=== PATIENT | male | born 1965 | race American Indian/Alaskan Native ===

== ENCOUNTER 2019-04-29 13:30 | Day surgery (SDC) | payer OTHER ==
[~2019-04-29 13:30] MED LIST: NACL 0.9% 1000 ML 1,000 ML IV SCH
[2019-04-29] MEDS ORDERED: XYLOCAINE MPF 2% ONE (14:30)
--- NOTE | 2019-04-29 14:40 | Anesthesia Consultation ---
Anesthesia Consult and Med Hx - Airway Anesthetic Teeth Evaluation: Good ROM Head & Neck: Adequate Mental/Hyoid Distance: Adequate Mallampati Class: Class I Intubation Access Assessment: Good - Pulmonary Exam CTA: Yes - Cardiac Exam Cardiac Exam: RRR - Pre-Operative Health Status ASA Pre-Surgery Classification: ASA2 Proposed Anesthetic Plan: MAC - Pulmonary Hx Smoking: Yes (Hx. of bronchitis, CTA) - Central Nervous System Hx Psychiatric Problems: Yes - Gastrointestinal Hx Ulcer: Yes - Hematic Hx Anemia: Yes (IRON DEFICIENCY) Hx Sickle Cell Disease: No - Additional Comments Anesthesia Medical History Comments: HIV positive
[2019-04-29] MEDS ORDERED: SUBLIMAZE ONE (16:00)
[2019-04-29] MEDS ORDERED: DIPRIVAN 10 MG/ML IV ONE ×2 (16:00)
[2019-04-29] MEDS ORDERED: VERSED ONE (16:00)
--- NOTE | 2019-04-29 16:16 | Operative Report ---
Operative Report Operative Report: Date: 04/29/2019 Operative Report: Date of procedure: 04/29/2019 Procedure: Esophagogastroduodenoscopy with multiple mucosal biopsies. Attending physician: Efren Vazquez MD Assistant Professor Of Geography: Efren Vazquez MD Indication: Patient is a 53 -year-old male who presented with a history of epigastric pain, iron deficiency anemia anorexia with early satiety and past history of peptic ulcer disease. Because of these symptoms , an upper endoscopy is done to assess patient, so that treatment may be directed based on the findings. Consent: Informed consent was obtained after advising the patient and family regarding nature of this procedure, its indications, potential benefits as well as possible complications including but not limited to bleeding perforation and adverse reaction to medication, infection as well as other cardiopulmonary complications. An informed written and verbal consent was then obtained after due opportunity was provided for questions and answers. Monitoring: Patient was monitored continuously with pulse oximetry and electrocardiographic recordings as well as blood pressure recordings. Vital signs remained stable throughout this procedure with no untoward events. Preoperative assessment: Patient was assessed immediately prior to this procedure for capacity to tolerate monitored anesthesia care and moderate sedation as well as general anesthesia. Patient's ASA classification is 3, Mallampati class is 2, Hyomental distance is 3. Instrument: Olympus video endoscope: [id number] [id number] Medications: Propofol given intravenously in divided doses. For details please refer to anesthesia records. Description of procedure: Patient was placed in the left lateral decubitus po sition after achieving sedation, the endoscope was introduced into the esophagus under direct vision. It was then advanced beyond the esophagus into the gastric stump and then beyond the stomach into the jejunum. It was subsequently withdrawn with careful inspection of all mucosal surfaces with the following findings. Findings: The esophagus was normal. The Z line was irregular. There was harleen thema in the gastric antrum. There is a clean base small transpyloric ulcer seen. Duodenum was normal to second portion. Several biopsies were obtained from the gastric antrum for histopathology. The endoscope was removed after the examination . Impression: Small gastric ulcer in the pyloric channel. Gastric antral erythema Irregular Z line Plan: Continue treatment with proton pump inhibitors. Consider repeat endoscopy after 8-12 weeks of treatment Follow patient clinically otherwise. Patient will be observed clinically. Additional recommendations will be made follow-up.
--- NOTE | 2019-04-29 16:17 | Discharge Summary ---
Short Stay Discharge Plan Activity: advance as tolerated Weight Bearing Status: Weight Bear as Tolerated Diet: regular Follow up with: [facility] [Primary Care Provider] - 7 Days
[2019-04-29 16:45] VITALS: BP 120/76
== END 2019-04-29 13:31 | disposition home or self-care (01) ==
LOC: GIO 13:30
PROVIDERS: ATTEND Internal Medicine Gastroenterology
DX: K29.50 Unspecified chronic gastritis without bleeding (principal); D50.9 Iron deficiency anemia, unspecified; K21.0 Gastro-esophageal reflux disease with esophagitis; F32.9 Major depressive disorder, single episode, unspecified; F41.9 Anxiety disorder, unspecified; F17.210 Nicotine dependence, cigarettes, uncomplicated; J40 Bronchitis, not specified as acute or chronic; Z79.899 Other long term (current) drug therapy
CPT/HCPCS: 88305; 88342; J2250; J2704; J3010; J7030